=== PATIENT | male | born 1930 | race Caucasian/White ===

== ENCOUNTER 2020-05-24 16:11 | Emergency (ER) | payer MEDICARE ==
[~2020-05-24] VITALS: Ht 175.2 cm; Wt 77.1 kg
[~2020-05-24 16:11] MED LIST: ASPIR-LOW81 MG PO; Altace2.5 MG PO; CENTRUM1 TA1 PO; FISH OIL1000 MG PO; FLOMAX0.4 MG PO; HYDROXYCHLOROQ200 MG PO; IMDUR SA60 M1 PO; KLOR-CON 1010 MEQ PO; LASIX40 MG PO; LIPITOR10 MG PO; LISINOPRIL10 MG PO; METOPROLOL SR25 MG PO; PLAVIX75 MG PO; VITAMIN E400 IU PO; WARFARIN SODIUM3 MG PO
[2020-05-24] MEDS ORDERED: CEPHALEXIN500 M1 PO (16:40)
== END 2020-05-24 16:43 | disposition home or self-care (01) ==
LOC: ED 16:11
DX: S51.811A Laceration without foreign body of right forearm, initial encounter (principal); I25.10 Atherosclerotic heart disease of native coronary artery without angina pectoris; I25.2 Old myocardial infarction; I48.91 Unspecified atrial fibrillation; K21.9 Gastro-esophageal reflux disease without esophagitis; Z79.899 Other long term (current) drug therapy; Z79.82 Long term (current) use of aspirin; W45.8XXA Other foreign body or object entering through skin, initial encounter; Y93.89 Activity, other specified; Y92.89 Other specified places as the place of occurrence of the external cause; Y99.8 Other external cause status